=== PATIENT | male | born 1960 | race Caucasian/White ===

== ENCOUNTER → 2017-02-24 | Outpatient (CLI) | payer OTHER ==
--- NOTE | 2017-02-25 08:46 | KCIC ---
PROCEDURE MR of the left wrist HISTORY Chronic left wrist pain. History of old left 5th metacarpal fracture. COMPARISON None TECHNIQUE Routine multiplanar sequences are obtained. FINDINGS No evidence of triangular fibrocartilage tear. Extensor carpi ulnaris tendon is intact. Other extensor compartments are intact. Flexor tendons intact Median nerve unremarkable. There is a small full-thickness defect of the scapholunate ligament at membranous component. The anterior and posterior bands of the ligament appear intact. No evidence of lunotriquetral ligament tear. Small distal radioulnar joint effusion. No evidence of acute fracture or aggressive bone destruction. There is a small intraosseous subchondral cyst at the distal, medial and posterior lunate bone. IMPRESSION 1. Small full-thickness defect or tear of the membranous component of the scapholunate ligament. No evidence of anterior or posterior band tear. No gross carpal malalignment. 2. Small distal radioulnar joint effusion. Electronically signed by: Maximiliano Rivera MD (February 25, 2017 08:44:29)
== END | disposition home or self-care (01) ==
LOC: KCIC MRI 12:12
DX: M25.532 Pain in left wrist (principal); M25.432 Effusion, left wrist
CPT/HCPCS: 73221